=== PATIENT | male | born 1990 | race Caucasian/White ===

== ENCOUNTER 2017-01-15 08:52 | Emergency (ER) | payer SELFPAY ==
[2017-01-15] MEDS ORDERED: Tetan/Diph/Pertus SYR(Tdap)* 0.5 ML SYR(BOOSTRIX) use SYR IM ONE ×2 (09:11)
--- NOTE | 2017-01-15 10:04 | ED ---
Laceration/Wound HPI - HPI Summary HPI Summary: Patient presents to the ED with a laceration to the right forehead after a mechanical fall with a strike of his head to a truck. Denies LOC, confusion, memory loss. Notes to a slight ZHANG, but denies wanting medications. There is a small macerated area to the left thenar palm. Denies pain. Minimal blood loss. The lac is 1.5cm, irregular and deep. Denies numbness, tingling, temperature or color changes to the area. - History of Current Complaint Stated Complaint: FALL / FACE LAC Time Seen by Provider: 01/15/17 09:01 Hx Obtained From: Patient Mechanism of Injury: Sharp/Blunt Trauma Onset/Duration: Sudden Onset Aggravating: Nothing Alleviating: Compression Timing: Constant Onset Severity: Mild Current Severity: Mild Pain Intensity: 6 Pain Scale Used: 0-10 Numeric Associated Signs & Symptoms: Negative - Allergy/Home Medications Allergies/Adverse Reactions: Allergies Allergy/AdvReac Type Severity Reaction Status Date / Time No Known Allergies Allergy Verified 02/27/16 10:51 PMH/Surg Hx/FS Hx/Imm Hx Previously Healthy: Yes Endocrine/Hematology History: Denies: Hx Diabetes, Hx Thyroid Disease Cardiovascular History: Denies: Hx Hypertension Respiratory History: Denies: Hx Asthma, Hx Chronic Obstructive Pulmonary Disease (COPD) GI History: Denies: Hx Ulcer - Immunization History Hx Pertussis Vaccination: No Immunizations Up to Date: Unable to Obtain/Confirm Infectious Disease History: Denies: Hx Clostridium Difficile, Hx Hepatitis, Hx Human Immunodeficiency Virus (HIV), Hx of Known/Suspected MRSA, Hx Shingles, Hx Tuberculosis, Traveled Outside the [place] in Last 30 Days - Family History Known Family History: Negative: Renal Disease, Blood Disorder - Social History Occupation: Employed Full-time Lives: With Family Alcohol Use: Rare Hx Substance Use: Yes Substance Use Type: Reports: Marijuana Hx Tobacco Use: No Smoking Status (MU): Never Smoked Tobacco Review of Systems Constitutional: Negative Negative: Fever, Chills, Fatigue Negative: Photophobia, Blurred Vision, Diplopia Negative: Palpitations, Chest Pain Negative: Shortness Of Breath, Cough Positive: no symptoms reported, see HPI Negative: Arthralgia, Myalgia Positive: Other - 1.5cm laceration to the right forehead Negative: Headache, Weakness All Other Systems Reviewed And Are Negative: Yes Physical Exam Triage Information Reviewed: Yes Vital Signs On Initial Exam: Initial Vitals Pulse Resp BP Pulse Ox 88 16 129/83 96 01/15/17 08:53 01/15/17 08:53 01/15/17 08:53 01/15/17 08:53 Completion Of Physical Exam Limited Due To: Dementia Appearance: Positive: Well-Appearing, Well-Nourished Skin: Positive: Warm, Skin Color Reflects Adequate Perfusion, Other - 1.5cm laceration to the right forehead Head/Face: Positive: Normal Head/Face Inspection Eyes: Positive: EOMI, GLORY, Conjunctiva Clear Neck: Positive: Supple, No Lymphadenopathy Respiratory/Lung Sounds: Positive: Clear to Auscultation, Breath Sounds Present Cardiovascular: Positive: Normal, RRR Musculoskeletal: Positive: Normal, Strength/ROM Intact Psychiatric: Positive: Normal Diagnostics - Vital Signs Vital Signs Pulse Resp BP Pulse Ox 01/15/17 08:53 88 16 129/83 96 - Laboratory Lab Statement: Any lab studies that have been ordered have been reviewed, and results considered in the medical decision making process. Laceration Repair Course/Dx - Course Course Of Treatment: Patient evaluated for laceration to the right forehead. He denies LOC or memory loss, confusion, N/V. Denies visual disturbances. Timeout obtained. Cleansed wound. Irrigated with 20CC's normal saline. Lidocaine without epi as local anesthetic - 2ml. 6-0 non-absorbable prolene. 4 sutures placed using simple interrupted technique. Patient tolerated well. Cleaned and dressed wound with telfa dressing. NV exam WNL. Sutures out in 5 days. Return precautions given. Patient OK with discharge. Patient agrees to return for suture removal. - Differential Dx Differental Diagnoses: Avulsion, Laceration - Clinical Impression Provider Diagnoses: Laceration Discharge - Discharge Plan Condition: Stable Disposition: HOME Patient Education Materials: Care For Your Stitches (ED) Referrals: No Primary Care Phys,NOPCP [Primary Care Provider] - Additional Instructions: If you develop redness, streaks of red around the wound, swelling, abnormal drainage or you develop a fever - you need to come back to the ED right away. Suture removal in 5-6 days. Continue to keep covered x 24 hours, then leave open to air, unless you are in a dirty environment, then keep it covered.
[2017-01-15 10:12] VITALS: BP 122/68
== END 2017-01-15 10:13 | disposition home or self-care (01) ==
LOC: ED 08:52
DX: S01.81XA Laceration without foreign body of other part of head, initial encounter (principal); W19.XXXA Unspecified fall, initial encounter; Y93.9 Activity, unspecified; Y92.9 Unspecified place or not applicable; Y99.9 Unspecified external cause status
CPT/HCPCS: 90471; 90715; 99281

== ENCOUNTER 2017-10-29 17:28 | Emergency (ER) | payer SELFPAY ==
[2017-10-29 18:04] VITALS: BP 118/76
--- NOTE | 2017-10-29 18:07 | UC ---
General HPI - HPI Summary HPI Summary: 26 yo male presents with diffuse joint aches and pains that began about 3 weeks ago. Says that any time he lifts anything over ~10lbs or does any activities he will have shoulder/elbow/hip/knee/ankle aches and pain that is relieved with rest. He is worried about lyme disease as he was bit by a tick about 6 months ago - says it was on him for about 3 hours and then removed. He has no medical history. Denies fever, chills, night sweats, fatigue, weight gain/loss, recent illness, SOB, chest pain, abdominal pain, n/v. - History of Current Complaint Chief Complaint: UCGeneralIllness Stated Complaint: ACHES IN THE JOINTS Hx Obtained From: Patient Onset Severity: Moderate Current Severity: Moderate Pain Intensity: 7 - Allergy/Home Medications Allergies/Adverse Reactions: Allergies Allergy/AdvReac Type Severity Reaction Status Date / Time No Known Allergies Allergy Verified 10/29/17 17:57 PMH/Surg Hx/FS Hx/Imm Hx - Additional Past Medical History Additional PMH: None Previously Healthy: Yes - Surgical History Surgical History: None - Family History Known Family History: Negative: Renal Disease, Blood Disorder - Social History Occupation: Employed Full-time Lives: With Family Alcohol Use: Occasionally Substance Use Type: Marijuana Substance Use Comment - Amount & Last Used: occasionally Smoking Status (MU): Never Smoked Tobacco - Immunization History Most Recent Influenza Vaccination: doesn't get Review of Systems Constitutional: Negative Skin: Negative Eyes: Negative ENT: Negative Respiratory: Negative Cardiovascular: Negative Gastrointestinal: Negative Genitourinary: Negative Motor: Negative Neurovascular: Negative Musculoskeletal: Arthralgia Neurological: Negative Psychological: Negative All Other Systems Reviewed And Are Negative: Yes Physical Exam - Summary Physical Exam Summary: GENERAL: NAD. WDWN. No pain distress. SKIN: No rashes, sores, lesions, or open wounds. HEENT: Head: AT/NC Eyes: EOM intact. Conjunctiva clear without inflammation or discharge. Ears: Hearing grossly normal. TMs intact, no bulging, erythema, or edema. Nose: Nasal mucosa pink and moist. NTTP maxillary and frontal sinus. Throat: Posterior oropharynx without exudates, erythema, or tonsillar enlargement. Uvula midline. NECK: Supple. Nontender. No lymphadenopathy. CHEST: CTAB. No r/r/w. No accessory muscle use. Breathing comfortably and in no distress. CV: RRR. Without m/r/g. Pulses intact. Brisk cap refill. MSK: FROM b/l UEs and LEs. 5/5 symmetric strength. All major joints NTTP. NEURO: Alert. CN II-XII grossly intact. PSYCH: Age appropriate behavior. Triage Information Reviewed: Yes Vital Signs: Initial Vital Signs Temp 98.9 F 10/29/17 18:00 Pulse 74 10/29/17 18:00 Resp 18 10/29/17 18:00 BP 118/76 10/29/17 18:00 Pulse Ox 100 10/29/17 18:00 Course/Dx - Course Course Of Treatment: Exam is benign today and vitals are WNL. I am unsure as to the cause of his symptoms - Will draw for lyme, cbc, cmp, and tsh. Information provided to establish with a PCP. - Differential Dx - Multi-Symptom Provider Diagnoses: Joint pain Discharge - Sign-Out/Discharge Documenting (check all that apply): Discharge/Admit/Transfer - Discharge Plan Condition: Stable Disposition: HOME Patient Education Materials: Lyme Disease (ED) Referrals: No Primary Care Phys,NOPCP [Primary Care Provider] - Additional Instructions: If you develop a fever, shortness of breath, chest pain, new or worsening symptoms - please call your PCP or go to the ED. - Billing Disposition and Condition Condition: STABLE Disposition: Home
[2017-10-30 14:07] LABS: ABS Basophils 0.1 10^3/ul (0-0.2); ABS Eosinophils 0.2 10^3/ul (0-0.6); ABS Lymphocytes 2.5 10^3/ul (1.0-4.8); ABS Monocytes 0.9 10^3/ul (0-0.8); ABS Neutrophils 5.4 10^3/ul (1.5-7.7); ABS Nucleated RBC 0 10^3/ul; Eosinophil % 2.3 % (0-6); Hematocrit 46 % (42-52); Hemoglobin 15.6 g/dl (14.0-18.0); Lymphocyte % 27.5 % (25-47); Mean Corpuscular HGB Conc 34 g/dl (31-36); Mean Corpuscular Hemoglobin 31 pg (27-31); Mean Corpuscular Volume 92 fL (80-94); Mean Platelet Volume 8.7 um3 (7.4-10.4); Nucleated Red Blood Cells % 0.1; Platelet Count 279 10^3/ul (150-450); Red Blood Count 4.97 10^6/ul (4.00-5.40); Red Cell Distribution Width 12 % (10.5-15); White Blood Count 9.1 10^3/ul (3.5-10.8)
[2017-10-30 14:18] LABS: EGFR Non-African American 84.4 (>60)
== END 2017-10-29 18:28 | disposition home or self-care (01) ==
LOC: UCEAST 17:28
DX: M25.519 Pain in unspecified shoulder (principal); M25.529 Pain in unspecified elbow; M25.559 Pain in unspecified hip; M25.569 Pain in unspecified knee; M25.579 Pain in unspecified ankle and joints of unspecified foot
CPT/HCPCS: 36415; 80053; 84443; 85025; 86618; 99211; G0463

== ENCOUNTER 2018-04-14 09:09 | Emergency (ER) | payer SELFPAY ==
[2018-04-14 09:21] VITALS: BP 132/70
--- NOTE | 2018-04-14 09:51 | UC ---
Complaint Male HPI - HPI Summary HPI Summary: 27-year-old male comes in with a chief complaint of burning with urination and seeing blood in his urine. He noticed that this morning. He does have some lower abdominal discomfort. No flank pain no fevers no chills. Has not eaten this morning. He says he usually does not eat in the morning. Denies any penile discharge. Denies any concern of STI. Reports that he and his partner were recently checked STI and they were negative. He believes he may have had a urinary tract infection in the past. - History of Current Complaint Chief Complaint: UCGU Stated Complaint: BLOOD IN URINE Time Seen by Provider: 04/14/18 09:34 Pain Intensity: 4 - Allergies/Home Medications Allergies/Adverse Reactions: Allergies Allergy/AdvReac Type Severity Reaction Status Date / Time No Known Allergies Allergy Verified 04/14/18 09:21 PMH/Surg Hx/FS Hx/Imm Hx Previously Healthy: Yes - Surgical History Surgical History: None - Family History Known Family History: Negative: Renal Disease, Blood Disorder - Social History Alcohol Use: Weekly Substance Use Type: Marijuana Substance Use Comment - Amount & Last Used: occasionally Smoking Status (MU): Never Smoked Tobacco - Immunization History Most Recent Influenza Vaccination: doesn't get Review of Systems All Other Systems Reviewed And Are Negative: Yes Constitutional: Positive: Negative Skin: Positive: Negative Eyes: Positive: Negative ENT: Positive: Negative Respiratory: Positive: Negative Cardiovascular: Positive: Negative Gastrointestinal: Positive: Other - SEE HPI Genitourinary: Positive: Dysuria, Hematuria, Frequency, Urgency. Negative: Vaginal/Penile Burning, Vaginal/Penile Itching, Vaginal/Penile Discharge, Vaginal/Penile Pain, Ulceration/Lesion Motor: Positive: Negative Neurovascular: Positive: Negative Musculoskeletal: Positive: Negative Neurological: Positive: Negative Psychological: Positive: Negative Is Patient Immunocompromised?: No Physical Exam Triage Information Reviewed: Yes Appearance: Well-Appearing, No Pain Distress, Well-Nourished Vital Signs: Initial Vital Signs Temp 98.5 F 04/14/18 09:17 Pulse 89 04/14/18 09:17 Resp 18 04/14/18 09:17 BP 132/70 04/14/18 09:17 Pulse Ox 98 04/14/18 09:17 Vital Signs Reviewed: Yes Eye Exam: Normal Eyes: Positive: Conjunctiva Clear Neck exam: Normal Neck: Positive: Supple Respiratory: Positive: Lungs clear, Normal breath sounds, No respiratory distress Cardiovascular: Positive: RRR Abdomen Description: Positive: Soft, Other: - MILD TENDERNESS TO PALPATION RLQ/ SUPRAPUBIC/LLQ. NO REBOUND.. Negative: CVA Tenderness (R), CVA Tenderness (L) Bowel Sounds: Positive: Present Musculoskeletal Exam: Normal Musculoskeletal: Positive: Strength Intact, ROM Intact Neurological Exam: Normal Neurological: Positive: Alert, Muscle Tone Normal Psychological Exam: Normal Psychological: Positive: Age Appropriate Behavior Skin Exam: Normal Complaint Male Course/Dx - Course Course Of Treatment: I discussed the urine results with the patient. Patient denies any flank pain or unilateral pain therefore at this time his symptoms are not consistent with kidney stone. He denies any concern of STI reports that he's been recently checked for the same. He was tender in the lower abdomen and we discussed the signs and symptoms of appendicitis. With the urine having both leukocytes and blood with dysuria it's most likely a urinary tract infection at this time. We'll treat with Bactrim. I let the patient know that if his pain increases especially in the right lower quadrant where he gets fevers. He feels more ill he should go to the emergency department for further evaluation and treatment to include evaluation for appendicitis. - Differential Dx/Diagnosis Provider Diagnosis: UTI (urinary tract infection) Discharge - Sign-Out/Discharge Documenting (check all that apply): Patient Departure All imaging exams completed and their final reports reviewed: No Studies - Discharge Plan Condition: Stable Disposition: HOME Prescriptions: Sulfamethox/Trimethoprim DS* [Bactrim DS 800/160 TAB*] 1 tab PO BID #20 tab Patient Education Materials: Urinary Tract Infection in Men (ED) Referrals: [facility] [place] [place] [facility] [Outside] Additional Instructions: FOLLOW UP WITH YOUR DOCTOR IF NOT COMPLETELY IMPROVED. GO TO THE EMERGENCY DEPARTMENT FOR ANY WORSENING OF YOUR CONDITION; PAIN, ESPECIALLY RIGHT LOWER ABDOMINAL PAIN, FEVER OR QUESTIONS OR CONCERNS. - Billing Disposition and Condition Condition: STABLE Disposition: Home
--- NOTE | 2018-04-15 15:40 | UC ---
- Progress Note Progress Note: notify pt no UTI stop antibiotic see primary care provider for reevaluation Course/Dx - Diagnoses Provider Diagnoses: UTI (urinary tract infection) Discharge - Sign-Out/Discharge Documenting (check all that apply): Post-Discharge Follow Up All imaging exams completed and their final reports reviewed: No Studies - Discharge Plan Condition: Stable Disposition: HOME Prescriptions: Sulfamethox/Trimethoprim DS* [Bactrim DS 800/160 TAB*] 1 tab PO BID #20 tab Patient Education Materials: Urinary Tract Infection in Men (ED) Referrals: [facility] [place] [facility] [place]Outside] Additional Instructions: FOLLOW UP WITH YOUR DOCTOR IF NOT COMPLETELY IMPROVED. GO TO THE EMERGENCY DEPARTMENT FOR ANY WORSENING OF YOUR CONDITION; PAIN, ESPECIALLY RIGHT LOWER ABDOMINAL PAIN, FEVER OR QUESTIONS OR CONCERNS. - Billing Disposition and Condition Condition: STABLE Disposition: Home
== END 2018-04-14 09:56 | disposition home or self-care (01) ==
LOC: UCEAST 09:09
DX: N39.0 Urinary tract infection, site not specified (principal)
CPT/HCPCS: 81003; 87086; 99212; G0463

== ENCOUNTER 2018-07-17 11:13 | Emergency (ER) | payer SELFPAY ==
[2018-07-17] MEDS ORDERED: Ondansetron INJ* 2 MG/ML VIAL IV ONE (11:39)
[2018-07-17] MEDS ORDERED: NS 0.9% 1000 ML** 1,000 ML IV ONE ×2 (11:39→12:22)
[2018-07-17 11:58] LABS: ABS Basophils 0.1 10^3/ul (0-0.2); ABS Eosinophils 0 10^3/ul (0-0.6); ABS Lymphocytes 1.3 10^3/ul (1.0-4.8); ABS Monocytes 0.7 10^3/ul (0-0.8); ABS Neutrophils 13.5 10^3/ul (1.5-7.7); ABS Nucleated RBC 0 10^3/ul; Eosinophil % 0.1 %; Hematocrit 48 % (42-52); Hemoglobin 15.6 g/dl (14.0-18.0); Lymphocyte % 8.6 %; Mean Corpuscular HGB Conc 33 g/dl (31-36); Mean Corpuscular Hemoglobin 30 pg (27-31); Mean Corpuscular Volume 91 fL (80-94); Mean Platelet Volume 7.9 fL (7.4-10.4); Nucleated Red Blood Cells % 0; Platelet Count 252 10^3/ul (150-450); Red Blood Count 5.24 10^6/ul (4.00-5.40); Red Cell Distribution Width 13 % (10.5-15); White Blood Count 15.6 10^3/ul (3.5-10.8)
[2018-07-17 12:14] LABS: ALT 26 U/L (7-52); AST 29 U/L (13-39); Albumin 4.7 g/dL (3.2-5.2); Alkaline Phosphatase 48 U/L (34-104); Anion Gap 14 mmol/L (2-11); Blood Urea Nitrogen 23 mg/dL (6-24); CO2 Carbon Dioxide 21 mmol/L (22-32); Calcium 9.6 mg/dL (8.6-10.3); Chloride 103 mmol/L (101-111); EGFR African American 108.5 (>60); EGFR Non-African American 89.6 (>60); Globulin 2.4 g/dL (2-4); Glucose 75 mg/dL (70-100); Magnesium 1.8 mg/dL (1.9-2.7); Potassium 4.2 mmol/L (3.5-5.0); Sodium 138 mmol/L (135-145); Total Protein 7.1 g/dL (6.4-8.9)
[2018-07-17 12:49] LABS: Alcohol < 10 mg/dL (<10)
--- NOTE | 2018-07-17 13:01 | ED ---
Nausea/Vomiting/Diarrhea HPI - HPI Summary HPI Summary: Pt. is a 27 y.o male who presents to the ER for epigastric pain and vomiting that started last night. Pt. states he was drinking ETOH last night [place] [employer]. Pt. states he stopped drinking around 1999 and then started vomiting. Pt. states vomiting continues this am and presents to the ER. Pt. notes that he felt dizzy today with position change but denies any falls or head injury. No past medical hx. Sxs are mild in severity. No current modifying factors. - History of Current Complaint Chief Complaint: EDAbdPain Stated Complaint: VOMITIN, POSSIBLE ALCOHOL POISONING Time Seen by Provider: 07/17/18 11:24 Hx Obtained From: Patient Pain Intensity: 10 - Allergies/Home Medications Allergies/Adverse Reactions: Allergies Allergy/AdvReac Type Severity Reaction Status Date / Time No Known Allergies Allergy Verified 07/17/18 11:20 PMH/Surg Hx/FS Hx/Imm Hx Previously Healthy: Yes Endocrine/Hematology History: Denies: Hx Diabetes, Hx Thyroid Disease Cardiovascular History: Denies: Hx Hypertension Respiratory History: Reports: Hx Asthma - as a child Denies: Hx Chronic Obstructive Pulmonary Disease (COPD) GI History: Denies: Hx Ulcer Infectious Disease History: No Infectious Disease History: Denies: Hx Clostridium Difficile, Hx Hepatitis, Hx Human Immunodeficiency Virus (HIV), Hx of Known/Suspected MRSA, Hx Shingles, Hx Tuberculosis, Traveled Outside the in Last 30 Days - Family History Known Family History: Negative: Renal Disease, Blood Disorder - Social History Occupation: Employed Full-time Lives: With Family Alcohol Use: Weekly Hx Substance Use: Yes Substance Use Type: Reports: Marijuana Substance Use Comment - Amount & Last Used: a dozen times daily Hx Tobacco Use: No Smoking Status (MU): Current Some Day Smoker Review of Systems Constitutional: Negative Negative: Fever, Chills Cardiovascular: Negative Respiratory: Negative Positive: Abdominal Pain, Vomiting, Nausea. Negative: Diarrhea Musculoskeletal: Negative Neurological: Negative All Other Systems Reviewed And Are Negative: Yes Physical Exam Triage Information Reviewed: Yes Vital Signs On Initial Exam: Initial Vitals Temp Pulse Resp BP Pulse Ox 98.3 F 79 18 105/75 100 07/17/18 11:16 07/17/18 11:16 07/17/18 11:16 07/17/18 11:16 07/17/18 11:16 Vital Signs Reviewed: Yes Appearance: Positive: Well-Appearing - Pt. lying in bed in NAD. Friend present. Skin: Positive: Warm, Dry Head/Face: Positive: Normal Head/Face Inspection Eyes: Positive: Normal, EOMI Neck: Positive: Supple Respiratory/Lung Sounds: Positive: Clear to Auscultation, Breath Sounds Present Cardiovascular: Positive: Normal, RRR Abdomen Description: Positive: Other: - Abd. is soft with mild pain to the epigastric region. No pain at [place]. No rebound tenderness or guarding. Neurological: Positive: Normal, CN Intact II-III Psychiatric: Positive: Affect/Mood Appropriate Diagnostics - Vital Signs Vital Signs Temp Pulse Resp BP Pulse Ox 07/17/18 12:28 83 13 121/58 100 07/17/18 12:00 80 20 97 07/17/18 11:58 79 20 111/72 88 07/17/18 11:28 75 117/81 100 07/17/18 11:27 80 100 07/17/18 11:16 98.3 F 79 18 105/75 100 - Laboratory Lab Results: Lab Results 07/17/18 07/17/18 Range/Units 11:47 11:47 WBC 15.6 H (3.5-10.8) 10^3/ul RBC 5.24 (4.00-5.40) 10^6/ul Hgb 15.6 (14.0-18.0) g/dl Hct 48 (42-52) % MCV 91 (80-94) fL MCH 30 (27-31) pg MCHC 33 (31-36) g/dl RDW 13 (10.5-15) % Plt Count 252 (150-450) 10^3/ul MPV 7.9 (7.4-10.4) fL Neut % (Auto) 86.4 % Lymph % (Auto) 8.6 % [place] % (Auto) 4.5 % Eos % (Auto) 0.1 % Baso % (Auto) 0.4 % Absolute Neuts (auto) 13.5 H (1.5-7.7) 10^3/ul Absolute Lymphs (auto) 1.3 (1.0-4.8) 10^3/ul Absolute Monos (auto) 0.7 (0-0.8) 10^3/ul Absolute Eos (auto) 0 (0-0.6) 10^3/ul Absolute Basos (auto) 0.1 (0-0.2) 10^3/ul Absolute Nucleated RBC 0 10^3/ul Nucleated RBC % 0 Sodium 138 (135-145) mmol/L Potassium 4.2 (3.5-5.0) mmol/L Chloride 103 (101-111) mmol/L Carbon Dioxide 21 L (22-32) mmol/L Anion Gap 14 H (2-11) mmol/L BUN 23 (6-24) mg/dL Creatinine 1.00 (0.67-1.17) mg/dL Est GFR ( Amer) 108.5 (>60) Est GFR (Non-Af Amer) 89.6 (>60) BUN/Creatinine Ratio 23.0 H (8-20) Glucose 75 (70-100) mg/dL Calcium 9.6 (8.6-10.3) mg/dL Magnesium 1.8 L (1.9-2.7) mg/dL Total Bilirubin 0.70 (0.2-1.0) mg/dL AST 29 (13-39) U/L ALT 26 (7-52) U/L Alkaline Phosphatase 48 (34-104) U/L Total Protein 7.1 (6.4-8.9) g/dL Albumin 4.7 (3.2-5.2) g/dL Globulin 2.4 (2-4) g/dL Albumin/Globulin Ratio 2.0 (1-3) Serum Alcohol < 10 (<10) mg/dL Result Diagrams: 07/17/18 11:47 07/17/18 11:47 Lab Statement: Any lab studies that have been ordered have been reviewed, and results considered in the medical decision making process. Naus/Vom/Diarrhea Course/Dx - Course Course Of Treatment: Pt. presenting for epigastric pain and vomiting after drinking ETOH last night. Pt. has a benign abd. exam. He was given IV fluids and zofran. Labs show leukocytosis but otherwise unremarkable. On re-exam pt. is feeling much better and has had no further vomiting in ED. He is tolerating PO fluids. Pt. states abd. pain is very minimal after zofran. Will dc home. Advised to avoid ETOH. Close fu with PCP. To increased fluids and return to ER if sxs change or worsen. Pt. understands and agrees with plan. - Differential Dx/Diagnosis Differential Diagnoses - Male: Appendicitis, Diverticulitis, Pancreatitis, Gall Bladder Disease, Gerd, Gastroenteritis (Viral), Gastroenteritis (Bacterial), Vomiting Provider Diagnosis: Alcohol abuse Condition At Discharge: Improved Discharge - Sign-Out/Discharge Documenting (check all that apply): Patient Departure Patient Received Moderate/Deep Sedation with Procedure: No - Discharge Plan Condition: Improved Disposition: HOME Prescriptions: Ondansetron TAB* [Zofran 4 MG Tab*] 4 mg PO Q6H PRN #12 tab PRN Reason: Nausea Patient Education Materials: Acute Nausea and Vomiting (ED), Alcohol Use Disorder (ED) Referrals: [facility] [Outside] Additional Instructions: Follow up with the [facility] Increase fluids Avoid alcohol or drug use Return to ER for increased pain, fever, uncontrollable vomiting - Billing Disposition and Condition Condition: IMPROVED Disposition: Home
[2018-07-17 14:13] VITALS: BP 119/64
== END 2018-07-17 14:12 | disposition home or self-care (01) ==
LOC: ED 11:13
DX: F10.10 Alcohol abuse, uncomplicated (principal); R10.13 Epigastric pain; R11.10 Vomiting, unspecified; R42 Dizziness and giddiness; Z72.0 Tobacco use
CPT/HCPCS: 36415; 80053; 80320; 83735; 85025; 96361; 96374; 99283; G0480; J2405

== ENCOUNTER 2018-10-31 08:14 | Emergency (ER) | payer SELFPAY ==
[2018-10-31 08:25] VITALS: BP 115/71
--- NOTE | 2018-10-31 08:39 | UC ---
Throat Pain/Nasal Feroz HPI - HPI Summary HPI Summary: Patient is a 27-year-old male who presents to the urgent care with chief complaint of having dysphonia. The patient had sore throat Wednesday and Wednesday however yesterday he felt better except for the dysphonia. Today he is getting worse with the dysphonia therefore he decided to come to the urgent care with further assessment. He denies any fever or chills, denies any body aches, denies any cough or nasal congestion. He is able to swallow and he denies any swelling into her throat or tongue or lips. He has no other complaints - History of Current Complaint Chief Complaint: UCGeneralIllness Stated Complaint: SORE THROAT Time Seen by Provider: 10/31/18 08:19 Hx Obtained From: Patient Onset/Duration: Gradual Onset Severity: Mild Pain Intensity: 0 - Allergies/Home Medications Allergies/Adverse Reactions: Allergies Allergy/AdvReac Type Severity Reaction Status Date / Time No Known Allergies Allergy Verified 10/31/18 08:25 Home Medications: Home Medications NK [No Home Medications Reported] 10/31/18 [History Confirmed 10/31/18] PMH/Surg Hx/FS Hx/Imm Hx Previously Healthy: Yes - Surgical History Surgical History: None - Family History Known Family History: Positive: Non-Contributory Negative: Renal Disease, Blood Disorder - Social History Alcohol Use: Weekly Substance Use Type: Marijuana Substance Use Comment - Amount & Last Used: a dozen times daily Smoking Status (MU): Former Smoker - Immunization History Most Recent Influenza Vaccination: doesn't get Review of Systems All Other Systems Reviewed And Are Negative: Yes Constitutional: Positive: Negative Skin: Positive: Negative Eyes: Positive: Negative ENT: Positive: Other - Dysphonia Respiratory: Positive: Negative Cardiovascular: Positive: Negative Gastrointestinal: Positive: Negative Genitourinary: Positive: Negative Motor: Positive: Negative Neurovascular: Positive: Negative Musculoskeletal: Positive: Negative Neurological: Positive: Negative Psychological: Positive: Negative Is Patient Immunocompromised?: No Physical Exam - Summary Physical Exam Summary: Vital signs: Reviewed Gen.: Patient is a well developed and nourished male in no acute distress. Patient is sitting comfortably on the stretcher. Head: Normacephalic and atraumatic Eyes: PERRLA, EOMI x2. Ears: Right ear canal and TM WNL Left ear canal and TM WNL Nose Nose with dry mucosa and clear discharge. No sinus tenderness and mouth: Positive pharyngeal erythema with no exudate. Neck: Supple, no bilateral submandibular and anterior cervical lymphadenopathy. No JVD Lungs: CTA B/L CVS: S1 & S2 present. No murmurs appreciated. ABDOMEN: Soft NT w/ positive BS. EXT: FROM x 4 NEURO: A+O X 3 Triage Information Reviewed: Yes Appearance: Well-Appearing Vital Signs: Initial Vital Signs Temp 98.3 F 10/31/18 08:21 Pulse 76 10/31/18 08:21 Resp 16 10/31/18 08:21 BP 115/71 10/31/18 08:21 Pulse Ox 100 10/31/18 08:21 Throat Pain/Nasal Course/Dx - Course Course Of Treatment: In the urgent care the patient appears to be well without any distress. Rapid strep is negative. Therefore, I believe that the symptoms are secondary to a viral infection. The patient was recommended to increase her water intake, take Tylenol or ibuprofen for pain or discomfort and follow-up with the primary care physician in the next 2-3 days. Patient is hemodynamically stable alert and oriented 3. - Differential Dx/Diagnosis Provider Diagnosis: Laryngitis Discharge - Sign-Out/Discharge Documenting (check all that apply): Patient Departure All imaging exams completed and their final reports reviewed: No Studies - Discharge Plan Condition: Stable Disposition: HOME Patient Education Materials: Laryngitis (ED) Referrals: No Primary Care Phys,NOPCP [Primary Care Provider] - [facility] [Outside] Additional Instructions: Take Tylenol or Ibuprofen for pain or fever as instructed Increase your fluid intake F/U with PCP in the next 2-3 days Return to the if symptoms worsen - Billing Disposition and Condition Condition: STABLE Disposition: Home
== END 2018-10-31 08:46 | disposition home or self-care (01) ==
LOC: UCEAST 08:14
DX: J04.0 Acute laryngitis (principal); Z87.891 Personal history of nicotine dependence
CPT/HCPCS: 87651; 99211; G0463